=== PATIENT | male | born 1930 | race Caucasian/White ===

== ENCOUNTER 2021-04-29 10:40 | Inpatient (IN) ==
[2021-04-29 14:09] LABS: Basophils # 0.1 10*3/uL (0.0-0.2); Basophils % 0.9 % (0.0-0.8); Eosinophils % 0.5 % (0.00-10.9); Hematocrit 35.6 VOL% (42.0-52.0); Hemoglobin 12.1 GM/DL (14.0-18.0); Immature Granulocytes % 0.7 %; Immature Granulocytes Absolute 0.06 #; Lymphocytes # 1.6 10*3/uL (1.4-4.0); Lymphocytes % 18.7 % (21.2-54.2); Mean Corpuscular Volume 88.1 FL (87-102); Mean Platelet Volume 9.7 FL (9.6-12.0); Monocytes % 10.2 % (1.7-12.7); Platelet Count 293 T/CUMM (130-400); Red Blood Count 4.04 MC/CUMM (3.8-5.5); Red Cell Distribution Width 11.8 % (9.3-17.3); White Blood Count 8.5 T/CUMM (4-12)
[2021-04-29 14:21] LABS: INR 1.1; Partial Thromboplastin Time 30.8 SECS (23.8-32.1)
[2021-04-29 14:56] LABS: Albumin 3.1 G/DL (3.4-5.0); Bilirubin,Total 0.6 MG/DL (0.20-1.00); Osmolality,Calculated 253.2 MOS/KG (273-304); Potassium 3.9 MMOL/L (3.5-5.1); Thyroid Stimulating Hormone 1.55 uIU/ml (0.358-3.74); Total Protein 7.5 G/DL (6.4-8.2)
[2021-04-29 15:26] LABS: Mucus,Urine Occasional /LPF (Occasional); RBC,Urine <1 /HPF (0-4)
[2021-04-29 15:29] LABS: Bilirubin,Urine Negative (Negative); Blood, Urine Small mg/dL (Negative); Glucose,Urine (UA) Negative (Negative); Ketones,Urine 40 mg/dL (Negative); Nitrite,Urine Negative (Negative); Protein,Urine Negative (Negative); Urine Appearance Clear (Clear); Urine Color Yellow (Yellow); Urine Urobilinogen 0.2 eU/dL (<2.0); Urine pH 6.5 (4.5-8.0)
[2021-04-29] MEDS ORDERED: ACETAMINOPHEN 325 MG TABLET PO PRN (16:08)
[2021-04-29] MEDS ORDERED: ONDANSETRON 4 MG/2 ML VIAL IV PRN (16:08)
[2021-04-29] MEDS ORDERED: ENOXAPARIN 40 MG/0.4 ML SYRINGE SUBCUT SCH (16:30)
[2021-04-29] MEDS: SODIUM CHLORIDE 0.9% 1,000 ML IV SCH (17:08)
[2021-04-29] MEDS: DOCUSATE SODIUM 100 MG CAPSULE PO SCH (21:09)
[2021-04-29] MEDS: diphenhydrAMINE CAP 25 MG CAPSULE PO PRN (21:09)
[2021-04-30] MEDS: SODIUM CHLORIDE 0.9% 1,000 ML IV SCH ×3 (02:32→19:54)
[2021-04-30 06:10] LABS: Calcium 8.1 MG/DL (8.5-10.1); Osmolality,Calculated 251.2 MOS/KG (273-304); Potassium 3.6 MMOL/L (3.5-5.1); Risk Ratio 1.93; VLDL Cholesterol 11.4 MG/DL
[2021-04-30] MEDS ORDERED: COSYNTROPIN 0.25 MG VIAL IV ONE (07:29)
[2021-04-30] MEDS: PANTOPRAZOLE 40 MG TABLET PO SCH (08:23)
[2021-04-30] MEDS: DOCUSATE SODIUM 100 MG CAPSULE PO SCH ×2 (08:23→20:41)
[2021-04-30] MEDS: SOTALOL 80 MG TABLET PO SCH ×2 (11:10→20:41)
[2021-04-30] MEDS: APIXABAN 5 MG TABLET PO SCH ×2 (11:10→20:41)
[2021-04-30] MEDS: diphenhydrAMINE CAP 25 MG CAPSULE PO PRN (20:41)
[2021-05-01] MEDS: SODIUM CHLORIDE 0.9% 1,000 ML IV SCH ×2 (01:16→09:47)
[2021-05-01] MEDS: SOTALOL 80 MG TABLET PO SCH ×2 (09:01→21:18)
[2021-05-01] MEDS: APIXABAN 5 MG TABLET PO SCH ×2 (09:01→21:18)
[2021-05-01] MEDS: PANTOPRAZOLE 40 MG TABLET PO SCH (09:01)
[2021-05-01] MEDS: DOCUSATE SODIUM 100 MG CAPSULE PO SCH ×2 (09:02→21:18)
[2021-05-01] MEDS: cefTRIAXone 1,000 MG in SODIUM CHLORIDE 0.9% 100 ML IV SCH (13:37)
[2021-05-01] MEDS: VANCOMYCIN INJ 1,250 MG in SODIUM CHLORIDE 0.9% 250 ML IV SCH (14:12)
[2021-05-01] MEDS: diphenhydrAMINE CAP 25 MG CAPSULE PO PRN (21:18)
[2021-05-02] MEDS: VANCOMYCIN INJ 1,250 MG in SODIUM CHLORIDE 0.9% 250 ML IV SCH (01:14)
[2021-05-02 05:56] LABS: Basophils # 0.1 10*3/uL (0.0-0.2); Basophils % 0.6 % (0.0-0.8); Eosinophils % 0.3 % (0.00-10.9); Hematocrit 31.7 VOL% (42.0-52.0); Hemoglobin 10.8 GM/DL (14.0-18.0); Immature Granulocytes % 0.5 %; Immature Granulocytes Absolute 0.05 #; Lymphocytes # 1.2 10*3/uL (1.4-4.0); Mean Corpuscular HGB Conc 34.1 GM/DL (32-36); Mean Corpuscular Volume 87.1 FL (87-102); Mean Platelet Volume 10.1 FL (9.6-12.0); Monocytes % 10.1 % (1.7-12.7); Neutrophils % 75.5 % (38.7-73.9); Platelet Count 308 T/CUMM (130-400); Red Blood Count 3.64 MC/CUMM (3.8-5.5); Red Cell Distribution Width 11.7 % (9.3-17.3); White Blood Count 9.4 T/CUMM (4-12)
[2021-05-02 06:11] LABS: Calcium 8.7 MG/DL (8.5-10.1); Osmolality,Calculated 256.9 MOS/KG (273-304); Potassium 3.5 MMOL/L (3.5-5.1)
[2021-05-02] MEDS: PANTOPRAZOLE 40 MG TABLET PO SCH (10:24)
[2021-05-02] MEDS: SOTALOL 80 MG TABLET PO SCH ×2 (10:24→22:07)
[2021-05-02] MEDS: APIXABAN 5 MG TABLET PO SCH ×2 (10:24→22:07)
[2021-05-02] MEDS: DOCUSATE SODIUM 100 MG CAPSULE PO SCH ×2 (10:25→22:07)
[2021-05-02] MEDS: cefTRIAXone 1,000 MG in SODIUM CHLORIDE 0.9% 100 ML IV SCH (13:22)
[2021-05-02] MEDS: DEXAMETHASONE 4 MG/1 ML VIAL IV SCH (19:41)
[2021-05-02] MEDS: diphenhydrAMINE CAP 25 MG CAPSULE PO PRN (22:07)
[2021-05-03 05:01] LABS: Basophils % 0.2 % (0.0-0.8); Hematocrit 31.2 VOL% (42.0-52.0); Hemoglobin 10.5 GM/DL (14.0-18.0); Immature Granulocytes % 0.5 %; Immature Granulocytes Absolute 0.05 #; Lymphocytes % 9.7 % (21.2-54.2); Mean Corpuscular HGB Conc 33.7 GM/DL (32-36); Mean Corpuscular Volume 87.2 FL (87-102); Mean Platelet Volume 10.1 FL (9.6-12.0); Monocytes % 8.5 % (1.7-12.7); Neutrophils % 81.1 % (38.7-73.9); Platelet Count 289 T/CUMM (130-400); Red Blood Count 3.58 MC/CUMM (3.8-5.5); Red Cell Distribution Width 11.7 % (9.3-17.3); White Blood Count 10.1 T/CUMM (4-12)
[2021-05-03 05:18] LABS: Calcium 7.9 MG/DL (8.5-10.1); Osmolality,Calculated 261.8 MOS/KG (273-304); Potassium 3.9 MMOL/L (3.5-5.1)
[2021-05-03] MEDS: DEXAMETHASONE 4 MG/1 ML VIAL IV SCH ×2 (07:33→17:39)
[2021-05-03] MEDS: PANTOPRAZOLE 40 MG TABLET PO SCH (09:02)
[2021-05-03] MEDS: SOTALOL 80 MG TABLET PO SCH ×2 (09:02→21:53)
[2021-05-03] MEDS: DOCUSATE SODIUM 100 MG CAPSULE PO SCH ×2 (09:02→21:53)
[2021-05-03] MEDS: VANCOMYCIN INJ 1,250 MG in SODIUM CHLORIDE 0.9% 250 ML IV SCH (09:02)
[2021-05-03] MEDS: APIXABAN 5 MG TABLET PO SCH ×2 (09:02→21:53)
[2021-05-03] MEDS: cefTRIAXone 1,000 MG in SODIUM CHLORIDE 0.9% 100 ML IV SCH (13:15)
[2021-05-03] MEDS: diphenhydrAMINE CAP 25 MG CAPSULE PO PRN (21:53)
[2021-05-04 04:50] LABS: Hematocrit 32.5 VOL% (42.0-52.0); Hemoglobin 10.9 GM/DL (14.0-18.0); Immature Granulocytes % 0.7 %; Immature Granulocytes Absolute 0.08 #; Lymphocytes # 0.9 10*3/uL (1.4-4.0); Lymphocytes % 7.8 % (21.2-54.2); Mean Corpuscular HGB Conc 33.5 GM/DL (32-36); Mean Corpuscular Volume 89.5 FL (87-102); Mean Platelet Volume 10.3 FL (9.6-12.0); Monocytes % 6.9 % (1.7-12.7); Neutrophils % 84.6 % (38.7-73.9); Platelet Count 321 T/CUMM (130-400); Red Blood Count 3.63 MC/CUMM (3.8-5.5); Red Cell Distribution Width 11.7 % (9.3-17.3); White Blood Count 11.5 T/CUMM (4-12)
[2021-05-04 05:07] LABS: Calcium 8.4 MG/DL (8.5-10.1); Osmolality,Calculated 259.9 MOS/KG (273-304); Potassium 4.1 MMOL/L (3.5-5.1)
[2021-05-04] MEDS: DEXAMETHASONE 4 MG/1 ML VIAL IV SCH ×2 (06:22→17:39)
[2021-05-04] MEDS: DOCUSATE SODIUM 100 MG CAPSULE PO SCH ×2 (09:51→20:36)
[2021-05-04] MEDS: APIXABAN 5 MG TABLET PO SCH ×2 (09:51→20:36)
[2021-05-04] MEDS: SOTALOL 80 MG TABLET PO SCH ×2 (09:51→20:36)
[2021-05-04] MEDS: PANTOPRAZOLE 40 MG TABLET PO SCH (09:51)
[2021-05-04] MEDS: VANCOMYCIN INJ 1,250 MG in SODIUM CHLORIDE 0.9% 250 ML IV SCH (10:07)
[2021-05-04] MEDS: cefTRIAXone 1,000 MG in SODIUM CHLORIDE 0.9% 100 ML IV SCH (13:10)
[2021-05-04] MEDS: BISACODYL 5 MG TABLET PO PRN (14:32)
[2021-05-04] MEDS: diphenhydrAMINE CAP 25 MG CAPSULE PO PRN (20:36)
[2021-05-04 21:56] LABS: Specimen Source THROAT
[2021-05-05] MEDS: DEXAMETHASONE 4 MG/1 ML VIAL IV SCH (05:58)
[2021-05-05] MEDS ORDERED: BISACODYL 10 MG SUPP RECTAL PRN (08:56)
[2021-05-05] MEDS ORDERED: MAGNESIUM HYDROXIDE SUSP 30 ML UDCUP PO PRN (08:56)
[2021-05-05] MEDS: VANCOMYCIN INJ 1,250 MG in SODIUM CHLORIDE 0.9% 250 ML IV SCH (10:00)
[2021-05-05] MEDS: APIXABAN 5 MG TABLET PO SCH (10:34)
[2021-05-05] MEDS: DOCUSATE SODIUM 100 MG CAPSULE PO SCH (10:34)
[2021-05-05] MEDS: BISACODYL 5 MG TABLET PO PRN (10:35)
[2021-05-05] MEDS: PANTOPRAZOLE 40 MG TABLET PO SCH (10:35)
[2021-05-05] MEDS: SOTALOL 80 MG TABLET PO SCH (10:35)
[2021-05-05 17:08] VITALS: BP 134/69
[2021-05-06] MEDS ORDERED: VANCOMYCIN INJ 1,250 MG in SODIUM CHLORIDE 0.9% 250 ML IV SCH (03:00)
== END 2021-05-05 16:00 | disposition swing bed (61) | DRG 196 ==
LOC: N.EDINP 10:40 → N.ED 10:40 → N.3E 17:10 → N.TELES 04-30 12:21
PROVIDERS: ADMIT Family Medicine; ATTEND Family Medicine